=== PATIENT | male | born 1945 | race Caucasian/White ===

== ENCOUNTER 2016-10-19 16:04 | Inpatient (IN) | payer MEDICARE, OTHER ==
[~2016-10-19] VITALS: Ht 165.1 cm; Wt 113.4 kg
[2016-10-19] VITALS (8 sets, daily range): BP systolic 78–195; BP diastolic 55–104; PULSE 65–74; RESP 18–20; TEMP 96.9–97.9; O2SAT 100
[~2016-10-19 16:04] MED LIST: ETOMIDATE 20 MG/10 ML VIAL IV PUSH ONE; LIDOCAINE HCL 2% 100 MG/5 ML SYRINGE IV PUSH ONE; SUCCINYLCHOLINE CHLORIDE 200 MG/10 ML VIAL IVP ONE
[2016-10-19] MEDS ORDERED: PROPOFOL 1000 MG/100 ML INJ 100 ML ONE (16:07)
[2016-10-19] MEDS ORDERED: ceFAZolin 2 GM PREMIX 50 ML ONE (16:08)
[2016-10-19] MEDS ORDERED: DIPHTH/TETANUS/ACEL PERTUSSIS (BOOSTER) 0.5 ML VIAL/PFS IM ONE (16:08)
[2016-10-19 16:35] LABS: AUTOMATED NEUTROPHIL # 10.4 TH/MM3 (1.8-7.7); BASOPHIL # 0.1 TH/MM3 (0-0.2); BASOPHIL % 0.8 % (0.0-2.0); EOSINOPHIL # 0.4 TH/MM3 (0-0.4); EOSINOPHIL % 2.3 % (0.0-4.0); HEMATOCRIT 44.2 % (39.0-51.0); HEMO FLAGS DIFF FINAL; I-STAT POTASSIUM 5.7 MMOL/L (3.5-4.9); I-STAT SODIUM 139 MMOL/L (138-146); LYMPH % 27.2 % (9.0-44.0); LYMPHOCYTE # 4.5 TH/MM3 (1.0-4.8); MEAN CELL VOLUME 90.1 FL (80.0-100.0); MEAN CORPUSCULAR HEMOGLOBIN 30.9 PG (27.0-34.0); MEAN CORPUSCULAR HGB CONC 34.3 % (32.0-36.0); MONO % 6.8 % (0.0-8.0); NEUT % 62.9 % (16.0-70.0); PLATELET COUNT 215 TH/MM3 (150-450); RED CELL DISTRIBUTION WIDTH 14.2 % (11.6-17.2); WHITE BLOOD COUNT 16.5 TH/MM3 (4.0-11.0)
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
[2016-10-19 16:51] LABS: INTERNATIONAL NORMALIZED RATIO 0.9 RATIO; PROTHROMBIN TIME - PATIENT 10.4 SEC (9.8-11.6)
[2016-10-19] MEDS ORDERED: IOHEXOL 350 MG/ML 10 ML VIAL (for RAD DIAG) IV ONE (16:51)
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
[2016-10-19 17:00] LABS: APTT (PATIENT) 20.4 SEC (24.3-30.1)
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
[2016-10-19] MEDS ORDERED: NALOXONE HCL 0.4 MG/ML AMP IV PRN (18:00)
[2016-10-19] MEDS ORDERED: ONDANSETRON HCL 4 MG/2 ML VIAL IV PRN (18:00)
[2016-10-19] MEDS ORDERED: PANTOPRAZOLE SODIUM 40 MG VIAL IV SCH (18:00)
[2016-10-19] MEDS ORDERED: SODIUM CHLORIDE 0.9% FLUSH 5 ML FLUSH IVF PRN ×2 (18:00→18:15)
[2016-10-19] MEDS ORDERED: Post-op Orders (for Pharmacy) MISC XX ONE (18:00)
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
[2016-10-19] MEDS ORDERED: SODIUM PHOSPHATE INJ 30 MMOL in SODIUM CHLOR 0.9% 250 ML INJ 240 ML IV PRN (18:15)
[2016-10-19] MEDS ORDERED: MAGNESIUM SULFATE INJ 4 GM in SODIUM CHLORIDE 0.9% INJ 92 ML IV PRN (18:15)
[2016-10-19] MEDS ORDERED: 3% SALINE INJ 500 ML IV SCH (18:15)
[2016-10-19] MEDS ORDERED: MAGNESIUM OXIDE 400 MG TAB PO PRN (18:15)
[2016-10-19] MEDS ORDERED: POTASSIUM PHOSPHATE MONOBASIC 500 MG TAB PO/TUBE PRN (18:15)
[2016-10-19] MEDS ORDERED: POTASSIUM PHOSPHATE MONOBASIC 500 MG TAB PO PRN (18:15)
[2016-10-19] MEDS ORDERED: POTASSIUM CHLOR 40 MEQ PREMIX 100 ML IV PRN (18:15)
[2016-10-19] MEDS ORDERED: GLUCAGON 1 MG/ML VIAL OTHER PRN ×2 (18:15→22:15)
[2016-10-19] MEDS: SODIUM CHLOR 0.9% 1000 ML INJ 1,000 ML IV SCH (18:15)
[2016-10-19] MEDS ORDERED: PROPOFOL 1000 MG/100 ML IV SCH (18:15)
[2016-10-19] MEDS ORDERED: DEXTROSE 50% IN WATER 50 ML VIAL(D50) IV PUSH PRN ×2 (18:15→22:15)
[2016-10-19] MEDS ORDERED: POTASSIUM CHLOR 20 MEQ PREMIX 100 ML IV PRN ×2 (18:15)
[2016-10-19] MEDS ORDERED: MAGNESIUM SULFATE INJ 2 GM in SODIUM CHLORIDE 0.9% INJ 96 ML IV PRN (18:15)
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
[2016-10-19] MEDS: 3% SALINE INJ 500 ML IV SCH (18:24)
[2016-10-19] MEDS: fentaNYL 2,500 MCG/NS 250 ML IV SCH (18:24)
[2016-10-19] MEDS: PROPOFOL 1000 MG/100 ML INJ 100 ML IV SCH ×2 (18:24→21:18)
[2016-10-19 18:36] LABS: BLOOD GAS CARBOXYHEMOGLOBIN 1.1 % (0-4); BLOOD GAS HCO3 21 mmol/L (22-26); BLOOD GAS METHEMOGLOBIN 0.9 % (0-2); BLOOD GAS O2 HGB SATURATION 98 % (90-100); BLOOD GAS OXYGEN CONTENT 20.5 Vol % (12.0-20.0); BLOOD GAS PCO2 37 mmHg (38-42); BLOOD GAS PO2 260 mmHg (61-120); BLOOD GAS TOTAL HGB 14.5 G/DL (12.0-16.0); CRITICAL VALUE NO; OXYGEN DEVICE VENTILATOR; TEMP CORR TO 98.6
[2016-10-19 18:37] LABS: DRAW SITE RT RADIAL; FIO2 70 %; NUMBER OF ARTERIAL PUNCTURES 2; STAT YES; ULNAR PULSE PRESENT; VENT SETTINGS AC/18/550/PEEP5
[2016-10-19] MEDS ORDERED: NOREPINEPHRINE-DEXTROSE DRIP 250 ML IV SCH ×2 (18:45→19:00)
[2016-10-19] MEDS ORDERED: SODIUM CHLORIDE 23.4% INJ 240 MEQ in SYRINGE/BAG 1 EA IV ONE (18:45)
[2016-10-19] MEDS ORDERED: TERBUTALINE INJ 1 MG/ML AMP SQ PRN ×2 (18:45→19:00)
[2016-10-19] MEDS ORDERED: levETIRAcetam 1000 MG INJ 100 ML IV ONE (18:45)
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
[2016-10-19] MEDS ORDERED: NOREPINEPHRINE 4 MG/4 ML AMP ONE (18:57)
[2016-10-19] MEDS ORDERED: MANNITOL 12.5 GM/50 ML VIAL IV ONE (19:00)
--- NOTE | 2016-10-19 19:00 | RADRPT ---
EXAM DATE/TIME: 10/19/2016 18:21 [facility] COMPARISON: CHEST SINGLE AP, October 19, 2016, 15:58. INDICATIONS : Central line placement. MEDICAL HISTORY : None. SURGICAL HISTORY : None. ENCOUNTER: Initial ACUITY: 1 day PAIN SCORE: Non-responsive. LOCATION: Bilateral chest FINDINGS: A single view of the chest demonstrates left-sided chest tube placement. Multiple left-sided rib frac tures. No pneumothorax. Endotracheal tube with tip 5-1/2 cm above the ugo. Left subclavian central line with tip in the SVC. The cardiomediastinal contours are unremarkable. CONCLUSION: 1. Left-sided rib fractures. 2. No pneumothorax. Waqas Lee MD on October 19, 2016 at 18:55 Board Certified Radiologist. This report was verified electronically.
[2016-10-19 19:34] LABS: ALKALINE PHOSPHATASE 91 U/L (45-117); ALT (GPT) 28 U/L (12-78); ANION GAP 11 MEQ/L (5-15); AST (GOT) 33 U/L (15-37); BICARBONATE 25.3 MEQ/L (21.0-32.0); BLOOD UREA NITROGEN 23 MG/DL (7-18); CHLORIDE 102 MEQ/L (98-107); CREATINE KINASE 438 U/L (39-308); GLOMERULAR FILTRATION RATE 56 ML/MIN (>89); POTASSIUM 4.2 MEQ/L (3.5-5.1); SODIUM (NA) 138 MEQ/L (136-145); TOTAL BILIRUBIN ADULT 0.7 MG/DL (0.2-1.0)
[2016-10-19 19:49] LABS: CKMB 4.4 NG/ML (0.5-3.6)
[2016-10-19] MEDS: INSULIN NovoLIN REGULAR SUPPLEMENTAL SCALE SQ SCH (21:00)
[2016-10-19] MEDS: CHLORHEXIDINE 0.12% (ORAL KIT) 15 ML CUP MT SCH (21:17)
[2016-10-19] MEDS: levETIRAcetam INJ 500 MG in SODIUM CHLORIDE 0.9% INJ 100 ML IV SCH (21:18)
[2016-10-19] MEDS: SODIUM CHLORIDE 0.9% FLUSH 5 ML FLUSH IVF SCH (21:18)
[2016-10-20] VITALS (21 sets, daily range): BP systolic 120–135; BP diastolic 60–70; PULSE 50–74; RESP 12; TEMP 97.5–98.1; O2SAT 97–100
[2016-10-20 00:11] LABS: BLOOD GAS BASE EXCESS -7.4 mmol/L (-2-2); BLOOD GAS CARBOXYHEMOGLOBIN 1.4 % (0-4); BLOOD GAS HCO3 15 mmol/L (22-26); BLOOD GAS O2 HGB SATURATION 98 % (90-100); BLOOD GAS OXYGEN CONTENT 16.3 Vol % (12.0-20.0); BLOOD GAS PO2 196 mmHg (61-120); BLOOD GAS TOTAL HGB 11.6 G/DL (12.0-16.0); CRITICAL VALUE YES; OXYGEN DEVICE VENTILATOR; TEMP CORR TO 98.6
[2016-10-20 00:12] LABS: BLOOD GAS PCO2 18 mmHg (38-42); DRAW SITE ART LINE; FIO2 50 %; STAT NO; VENT SETTINGS PRVC/AC
[2016-10-20] MEDS ORDERED: NOREPINEPHRINE 4 MG/4 ML AMP ONE (02:43)
[2016-10-20] MEDS: PROPOFOL 1000 MG/100 ML INJ 100 ML IV SCH ×5 (03:18→23:17)
[2016-10-20] MEDS: fentaNYL 2,500 MCG/NS 250 ML IV SCH ×4 (03:18→23:16)
[2016-10-20] MEDS: MIDAZOLAM 100 MG/ML INJ 100 ML IV SCH ×3 (03:19→23:15)
[2016-10-20] MEDS: CLINDAMYCIN INJ 600 MG in SODIUM CHLORIDE 0.9% INJ 50 ML IV SCH ×2 (04:00→13:13)
[2016-10-20 04:27] LABS: AUTOMATED NEUTROPHIL # 20.7 TH/MM3 (1.8-7.7); BASOPHIL # 0.1 TH/MM3 (0-0.2); BASOPHIL % 0.3 % (0.0-2.0); EOSINOPHIL # 0.2 TH/MM3 (0-0.4); EOSINOPHIL % 0.6 % (0.0-4.0); HEMATOCRIT 34.7 % (39.0-51.0); HEMO FLAGS DIFF FINAL; LYMPH % 6.8 % (9.0-44.0); LYMPHOCYTE # 1.7 TH/MM3 (1.0-4.8); MEAN CELL VOLUME 89.3 FL (80.0-100.0); MEAN CORPUSCULAR HEMOGLOBIN 31.2 PG (27.0-34.0); MONO % 6.7 % (0.0-8.0); NEUT % 85.6 % (16.0-70.0); PLATELET COUNT 197 TH/MM3 (150-450); RED BLOOD COUNT 3.88 MIL/MM3 (4.50-5.90); RED CELL DISTRIBUTION WIDTH 13.9 % (11.6-17.2); WHITE BLOOD COUNT 24.2 TH/MM3 (4.0-11.0)
[2016-10-20] MEDS ORDERED: EPINEPHrine HCL (1:10,000) 1 MG/10 ML SYRINGE ONE (04:57)
[2016-10-20] MEDS ORDERED: LIDOCAINE HCL 2% 100 MG/5 ML SYRINGE ONE (04:57)
[2016-10-20] MEDS ORDERED: ATROPINE SULFATE 1 MG/10 ML SYRINGE ONE (04:58)
[2016-10-20 05:20] LABS: BICARBONATE 19.5 MEQ/L (21.0-32.0); POTASSIUM 4.4 MEQ/L (3.5-5.1)
--- NOTE | 2016-10-20 05:46 | RADRPT ---
EXAM DATE/TIME: 10/20/2016 05:08 [facility] COMPARISON: CT BRAIN W/O CONTRAST, October 19, 2016, 16:27. INDICATIONS : Follow up bleed. RADIATION DOSE: 69.17 CTDIvol (mGy) MEDICAL HISTORY : Non-responsive. SURGICAL HISTORY : Non-responsive. ENCOUNTER: Subsequent ACUITY: 1 day PAIN SCALE: Non-responsive LOCATION: cranial TECHNIQUE: Multiple contiguous axial images were obtained of the head. Using automated exposure control and adj ustment of the mA and/or kV according to patient size, radiation dose was kept as low as reasonably a chievable to obtain optimal diagnostic quality images. FINDINGS: Compare October 19. Trace left subdural hematoma the previous exam has increased in size to a thickness of about 12 mm in the left temporal region on the current exam with some localized mass effect. No m idline shift at the level of the septum pellucidum. Hemorrhagic contusion right frontal lobe has increased in size to about 2.4 x 1.6 cm compared with pr evious measurement of about 2.2 x 1.5 cm. Evolving right subdural hematoma stable. Scattered subarach noid hemorrhage is relatively stable. Right frontal pressure monitor present. CONCLUSION: 1. Compared with October 19 there is interval development of a left-sided subdural hematoma measuring a bout 12 mm in thickness with localized mass effect. 2. Slight increase in size of hemorrhagic contusion in right frontal lobe. 3. Evolving right subdural hemorrhage. Scattered subarachnoid hemorrhage. Jf Sun MD on October 20, 2016 at 5:40 Board Certified Radiologist. This report was verified electronically.
[2016-10-20] MEDS: SODIUM CHLOR 0.9% 1000 ML INJ 1,000 ML IV SCH ×2 (06:20→18:00)
[2016-10-20] MEDS: INSULIN NovoLIN REGULAR SUPPLEMENTAL SCALE SQ SCH ×5 (06:21→22:37)
[2016-10-20] MEDS: NOREPINEPHRINE INJ 4 MG in SODIUM CHLOR 0.9% 250 ML INJ 246 ML IV SCH ×3 (07:18→23:15)
[2016-10-20] MEDS: levETIRAcetam INJ 500 MG in SODIUM CHLORIDE 0.9% INJ 100 ML IV SCH ×2 (08:44→21:42)
[2016-10-20] MEDS: SODIUM CHLORIDE 0.9% FLUSH 5 ML FLUSH IVF SCH ×3 (08:44→21:20)
[2016-10-20] MEDS: CHLORHEXIDINE 0.12% (ORAL KIT) 15 ML CUP MT SCH ×2 (08:45→21:21)
[2016-10-20] MEDS ORDERED: GENTAMICIN SULFATE 80 MG/2 ML VIAL ONE (09:19)
[2016-10-20] MEDS ORDERED: SODIUM CHLOR 0.9% 250 ML INJ 250 ML ONE (09:19)
[2016-10-20] MEDS ORDERED: GELFOAM SIZE 100 ONE (09:19)
[2016-10-20] MEDS ORDERED: THROMBIN (TOPICAL) 5,000 UNIT VIAL ONE (09:19)
[2016-10-20] MEDS ORDERED: VANCOMYCIN HCL 1000 MG VIAL ONE (09:19)
[2016-10-20] MEDS ORDERED: LIDOCAINE 1%/EPINEPHrine 1:100,000 SOLN 30 ML VIAL ONE (09:19)
[2016-10-20] MEDS ORDERED: ceFAZolin 2 GM PREMIX 50 ML ONE (09:19)
[2016-10-20] MEDS ORDERED: BACITRACIN TOP OINT 15 GM TUBE ONE (09:19)
[2016-10-20 10:00] LABS: BLOOD GAS BASE EXCESS -6.9 mmol/L (-2-2); BLOOD GAS CARBOXYHEMOGLOBIN 1.4 % (0-4); BLOOD GAS HCO3 18 mmol/L (22-26); BLOOD GAS METHEMOGLOBIN 1.3 % (0-2); BLOOD GAS O2 HGB SATURATION 96 % (90-100); BLOOD GAS OXYGEN CONTENT 17.1 Vol % (12.0-20.0); BLOOD GAS PCO2 40 mmHg (38-42); BLOOD GAS PO2 141 mmHg (61-120); BLOOD GAS TOTAL HGB 12.5 G/DL (12.0-16.0); TEMP CORR TO 98.6
[2016-10-20 10:01] LABS: CRITICAL VALUE YES; DRAW SITE ART LINE; OXYGEN DEVICE VENTILATOR; STAT YES
[2016-10-20] MEDS ORDERED: NS + KCL 20 MEQ INJ 1,000 ML IV SCH (10:06)
[2016-10-20] MEDS ORDERED: ACETAMINOPHEN/HYDROcodone 325 MG/10 MG TAB PO PRN ×2 (10:15)
[2016-10-20] MEDS ORDERED: MAGNESIUM SULFATE INJ 4 GM in SODIUM CHLORIDE 0.9% INJ 100 ML IV PRN (10:15)
[2016-10-20] MEDS ORDERED: MORPHINE SULFATE 4 MG/ML INJ IV PUSH PRN ×2 (10:15)
[2016-10-20] MEDS ORDERED: ONDANSETRON HCL 4 MG/2 ML VIAL IV PRN (10:15)
[2016-10-20] MEDS ORDERED: BISACODYL 10 MG SUPP PR PRN (10:15)
[2016-10-20] MEDS ORDERED: SODIUM CHLORIDE 0.9% FLUSH 5 ML FLUSH IVF PRN (10:15)
[2016-10-20] MEDS ORDERED: ACETAMINOPHEN 325 MG TAB PO PRN (10:15)
[2016-10-20] MEDS ORDERED: CALCIUM GLUCONATE 10% 1 GM/10 ML VIAL IV PRN (10:15)
[2016-10-20] MEDS ORDERED: POTASSIUM CHLOR 20 MEQ PREMIX 100 ML IV PRN (10:15)
[2016-10-20] MEDS ORDERED: levETIRAcetam INJ 500 MG in SODIUM CHLORIDE 0.9% INJ 100 ML IV SCH (11:00)
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
[2016-10-20] MEDS ORDERED: PHENYLEPH/NS 1000 MCG/10 ML SYR IV ONE (12:00)
[2016-10-20] MEDS ORDERED: fentaNYL CITRATE 250 MCG/5 ML AMP ONE (12:24)
--- NOTE | 2016-10-20 12:27 | EKG ---
Date Performed: 10/20/2016 Time Performed: 08:10:16 PTAGE: 71 years EKG: Sinus bradycardia. Septal T wave changes are nonspecific Borderline ECG NO PREVIOUS TRACING DOCTOR: Jatin Martinez Interpretating Date/Time 10/20/2016 12:26:34
[2016-10-20] MEDS ORDERED: TERBUTALINE INJ 1 MG/ML AMP SQ PRN (12:45)
[2016-10-20 12:55] LABS: BLOOD GAS CARBOXYHEMOGLOBIN 1.4 % (0-4); BLOOD GAS HCO3 18 mmol/L (22-26); BLOOD GAS METHEMOGLOBIN 1.1 % (0-2); BLOOD GAS O2 HGB SATURATION 95 % (90-100); BLOOD GAS PCO2 33 mmHg (38-42); BLOOD GAS PO2 89 mmHg (61-120); BLOOD GAS TOTAL HGB 11.2 G/DL (12.0-16.0); CRITICAL VALUE NO; OXYGEN DEVICE VENTILATOR; TEMP CORR TO 98.6
[2016-10-20 12:56] LABS: DRAW SITE ART LINE; FIO2 40 %; STAT NO
[2016-10-20] MEDS: 3% SALINE INJ 500 ML IV SCH (13:14)
[2016-10-20] MEDS: ceFAZolin 2 GM PREMIX 50 ML IV SCH ×2 (13:55→21:18)
[2016-10-20] MEDS ORDERED: EPINEPHrine (1:1000) INJ 2 MG in SODIUM CHLOR 0.9% 250 ML INJ 250 ML IV SCH (15:00)
[2016-10-20] MEDS ORDERED: PHENYLEPHRINE INJ 160 MG in DEXTROSE 5% IN WATE 500 ML INJ 484 ML IV SCH ×2 (15:00)
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
[2016-10-20] MEDS: DOCUSATE SODIUM 100 MG CAP PO SCH (21:19)
[2016-10-20] MEDS: ARTIFICIAL TEARS OPTH SOLN 15 ML BTL EACH EYE SCH (21:21)
[2016-10-20] MEDS: BACITRACIN TOP OINT 15 GM TUBE TOP SCH (22:37)
[2016-10-20 22:42] LABS: BLOOD GAS BASE EXCESS -7.5 mmol/L (-2-2); BLOOD GAS CARBOXYHEMOGLOBIN 1.3 % (0-4); BLOOD GAS HCO3 17 mmol/L (22-26); BLOOD GAS METHEMOGLOBIN 0.9 % (0-2); BLOOD GAS O2 HGB SATURATION 97 % (90-100); BLOOD GAS OXYGEN CONTENT 14.4 Vol % (12.0-20.0); BLOOD GAS PCO2 30 mmHg (38-42); BLOOD GAS PO2 122 mmHg (61-120); BLOOD GAS TOTAL HGB 10.4 G/DL (12.0-16.0); CRITICAL VALUE NO; OXYGEN DEVICE VENTILATOR; TEMP CORR TO 98.6
[2016-10-20 22:43] LABS: DRAW SITE ART LINE; FIO2 40 %; STAT NO
[2016-10-20] MEDS ORDERED: GLUCAGON 1 MG/ML VIAL OTHER PRN (23:15)
[2016-10-20] MEDS ORDERED: DEXTROSE 50% IN WATER 50 ML VIAL(D50) IV PUSH PRN (23:15)
[2016-10-21] VITALS (15 sets, daily range): BP systolic 125–163; BP diastolic 54–71; PULSE 53–78; RESP 12–22; TEMP 93.4–100; O2SAT 97–100
[2016-10-21] MEDS: SODIUM CHLOR 0.9% 1000 ML INJ 1,000 ML IV SCH ×2 (02:40→12:22)
[2016-10-21] MEDS: NOREPINEPHRINE INJ 4 MG in SODIUM CHLOR 0.9% 250 ML INJ 246 ML IV SCH ×5 (02:40→22:57)
[2016-10-21] MEDS: ARTIFICIAL TEARS OPTH SOLN 15 ML BTL EACH EYE SCH ×4 (03:19→17:32)
[2016-10-21] MEDS ORDERED: EPINEPHrine HCL (1:10,000) 1 MG/10 ML SYRINGE ONE (04:41)
[2016-10-21] MEDS ORDERED: ATROPINE SULFATE 1 MG/10 ML SYRINGE ONE (04:41)
[2016-10-21] MEDS ORDERED: LIDOCAINE HCL 2% 100 MG/5 ML SYRINGE ONE (04:41)
--- NOTE | 2016-10-21 05:11 | RADRPT ---
EXAM DATE/TIME: 10/21/2016 03:51 [facility] COMPARISON: CHEST SINGLE AP, October 19, 2016, 18:21. INDICATIONS : Shortness of breath. MEDICAL HISTORY : None. SURGICAL HISTORY : None. ENCOUNTER: Subsequent ACUITY: 3 days PAIN SCORE: Non-responsive. LOCATION: Bilateral chest FINDINGS: A single view of the chest demonstrates the lungs to be symmetrically aerated without evidence of mas s, infiltrate or effusion. The cardiomediastinal contours are unremarkable. Osseous structures are intact. CONCLUSION: 1. No significant change has occurred. Sterling Gordon MD on October 21, 2016 at 5:09 Board Certified Radiologist. This report was verified electronically.
--- NOTE | 2016-10-21 05:26 | RADRPT ---
EXAM DATE/TIME: 10/21/2016 05:08 [facility] COMPARISON: CT BRAIN W/O CONTRAST, October 20, 2016, 5:08. INDICATIONS : Follow up bleed. RADIATION DOSE: 69.15 CTDIvol (mGy) MEDICAL HISTORY : Non-responsive. SURGICAL HISTORY : Non-responsive. ENCOUNTER: Subsequent ACUITY: 2 days PAIN SCALE: Non-responsive LOCATION: cranial TECHNIQUE: Multiple contiguous axial images were obtained of the head. Using automated exposure control and adj ustment of the mA and/or kV according to patient size, radiation dose was kept as low as reasonably a chievable to obtain optimal diagnostic quality images. FINDINGS: There are bilateral hemorrhagic contusions seen in the temporal regions right greater than left with a mild amount of surrounding edema. There is scattered subarachnoid hemorrhage seen which is stable. Right frontal hematoma is stable on axial image 24. There are skin david and the patient is status post left frontal craniotomy with subdural drain placement and evacuation of left temporal subdural h emorrhage which is significantly smaller on the current study with a maximal transverse width of 7 mm . There is a hypodense right subdural collection with mass effect on the right frontal lobe measuring 8 mm in transverse dimension as before. Small retinal hemorrhages are seen in the inferior frontal r egion at the midline as before. Bilateral periorbital soft tissue swelling is seen. A small amount of intraventricular hemorrhage and hemorrhage in the interpeduncular cistern again seen as well as laye ring along the tentorium. 1.9 mm of right to left shift. CONCLUSION: 1. Postsurgical changes with decrease in size of left subdural hematoma with drain placement. 2. Scattered areas of intraparenchymal and extra-axial hemorrhage. Sterling Gordon MD on October 21, 2016 at 5:21 Board Certified Radiologist. This report was verified electronically.
[2016-10-21 06:21] LABS: BLOOD GAS BASE EXCESS -7.4 mmol/L (-2-2); BLOOD GAS CARBOXYHEMOGLOBIN 1.3 % (0-4); BLOOD GAS HCO3 17 mmol/L (22-26); BLOOD GAS METHEMOGLOBIN 0.8 % (0-2); BLOOD GAS O2 HGB SATURATION 96 % (90-100); BLOOD GAS OXYGEN CONTENT 13.6 Vol % (12.0-20.0); BLOOD GAS PCO2 33 mmHg (38-42); BLOOD GAS PO2 104 mmHg (61-120); CRITICAL VALUE NO; OXYGEN DEVICE VENTILATOR; TEMP CORR TO 98.6
[2016-10-21 06:22] LABS: DRAW SITE ART LINE; FIO2 40 %; STAT NO; VENT SETTINGS SEE COMMENTS
[2016-10-21] MEDS: PROPOFOL 1000 MG/100 ML INJ 100 ML IV SCH ×5 (06:31→17:30)
[2016-10-21] MEDS: ceFAZolin 2 GM PREMIX 50 ML IV SCH (06:31)
[2016-10-21 07:00] LABS: AUTOMATED NEUTROPHIL # 19.5 TH/MM3 (1.8-7.7); BASOPHIL % 0.2 % (0.0-2.0); EOSINOPHIL # 0.2 TH/MM3 (0-0.4); EOSINOPHIL % 0.8 % (0.0-4.0); HEMATOCRIT 28.2 % (39.0-51.0); HEMO FLAGS DIFF FINAL; LYMPH % 4.9 % (9.0-44.0); LYMPHOCYTE # 1.1 TH/MM3 (1.0-4.8); MEAN CELL VOLUME 89.7 FL (80.0-100.0); MEAN CORPUSCULAR HEMOGLOBIN 31.3 PG (27.0-34.0); MEAN CORPUSCULAR HGB CONC 34.9 % (32.0-36.0); MONO % 3.7 % (0.0-8.0); NEUT % 90.4 % (16.0-70.0); PLATELET COUNT 140 TH/MM3 (150-450); RED BLOOD COUNT 3.14 MIL/MM3 (4.50-5.90); RED CELL DISTRIBUTION WIDTH 14.7 % (11.6-17.2); WHITE BLOOD COUNT 21.5 TH/MM3 (4.0-11.0)
[2016-10-21 07:22] LABS: ANION GAP 10 MEQ/L (5-15); BICARBONATE 19.4 MEQ/L (21.0-32.0); BLOOD UREA NITROGEN 11 MG/DL (7-18); CHLORIDE 125 MEQ/L (98-107); GLOMERULAR FILTRATION RATE 101 ML/MIN (>89); POTASSIUM 3.7 MEQ/L (3.5-5.1); SODIUM (NA) 154 MEQ/L (136-145)
[2016-10-21 07:30] LABS: ALKALINE PHOSPHATASE 57 U/L (45-117); ALT (GPT) 23 U/L (12-78); AST (GOT) 24 U/L (15-37); TOTAL BILIRUBIN ADULT 0.5 MG/DL (0.2-1.0)
[2016-10-21] MEDS: PANTOPRAZOLE SOD 40 MG DELAYED RELEASE TAB PO SCH (08:27)
[2016-10-21] MEDS: SODIUM CHLORIDE 0.9% FLUSH 5 ML FLUSH IVF SCH ×3 (08:27→19:56)
[2016-10-21] MEDS: LACTULOSE SYRUP 20 GM/30 ML CUP PO SCH (08:42)
[2016-10-21] MEDS: DOCUSATE SODIUM 100 MG CAP PO SCH ×2 (08:42→19:56)
[2016-10-21] MEDS: PANTOPRAZOLE SODIUM 40 MG VIAL IVP SCH (08:42)
[2016-10-21] MEDS: levETIRAcetam INJ 500 MG in SODIUM CHLORIDE 0.9% INJ 100 ML IV SCH ×2 (08:43→19:55)
[2016-10-21] MEDS: CHLORHEXIDINE 0.12% (ORAL KIT) 15 ML CUP MT SCH ×2 (08:43→21:04)
[2016-10-21] MEDS: BACITRACIN TOP OINT 15 GM TUBE TOP SCH ×2 (08:44→19:56)
[2016-10-21] MEDS: INSULIN ASPART SUPPLEMENTAL SCALE SQ SCH ×3 (08:44→12:20)
[2016-10-21] MEDS: MIDAZOLAM 100 MG/ML INJ 100 ML IV SCH ×2 (08:46→17:30)
[2016-10-21] MEDS: fentaNYL 2,500 MCG/NS 250 ML IV SCH ×2 (08:46→17:30)
[2016-10-21] MEDS ORDERED: SODIUM CHLORID 0.9% 500 ML INJ 500 ML IV ONE ×3 (10:15→12:00)
[2016-10-21] MEDS ORDERED: DEXTROSE 50% IN WATER 50 ML VIAL(D50) IV PUSH PRN (10:15)
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
[2016-10-21] MEDS ORDERED: INSULIN NovoLIN REGULAR SUPPLEMENTAL SCALE SQ SCH (12:00)
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
[2016-10-21] MEDS: 3% SALINE INJ 500 ML IV SCH (17:31)
[2016-10-21] MEDS: INSULIN NovoLIN REGULAR SUPPLEMENTAL SCALE SQ SCH (17:32)
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
--- NOTE | 2016-10-21 23:03 | PD.CONS ---
History of Present Illness Service Ophthalmology Consult Requested By Reason for Consult left orbital fracture Primary Care Physician Unknown Diagnoses: History of Present Illness 71 [place] [facility] [place]. Found to have SAH, SDH with 4cm right to left shift, multiple facial fractures including left orbital fracture. Pt currently intubated and sedated. Past Family Social History Allergies: Coded Allergies: No Known Allergies (Unverified , 10/20/16) Physical Exam Vital Signs Vital Signs Date Time Temp Pulse Resp B/P Pulse Ox O2 Delivery O2 Flow Rate FiO2 10/21/16 20:23 100 40 10/21/16 20:23 100 40 10/21/16 17:00 40 10/21/16 16:00 98.6 67 14 163/60 98 10/21/16 16:00 40 10/21/16 15:46 99 40 10/21/16 12:00 40 10/21/16 12:00 99.0 70 14 136/54 98 10/21/16 11:17 98 40 10/21/16 08:00 40 10/21/16 08:00 95.3 78 12 140/68 98 10/21/16 08:00 98 40 10/21/16 08:00 98 40 10/21/16 06:00 70 10/21/16 05:32 100 100 10/21/16 04:34 99 40 10/21/16 04:00 54 10/21/16 04:00 40 10/21/16 04:00 93.4 54 12 125/66 99 10/21/16 02:00 53 10/21/16 01:33 100 40 10/21/16 00:00 93.4 54 12 131/59 100 10/21/16 00:00 54 10/21/16 00:00 40 10/20/16 23:34 100 40 Physical Exam Va unable EOM unable CVF unable Pupils 1mm OU, no APD IOP 20, 20 Anterior exam OD - eyelid ecchymoses, chemosis, K clear, AC deep, pupil round, lens clear OS - eyelid ecchymoses, chemosis/MAGALYS, K clear, AC deep, pupil round, lens clear Laboratory Laboratory Tests Test 10/21/16 10/21/16 10/21/16 10/21/16 02:43 06:08 06:16 09:00 Sodium Level 154 154 153 Serum Osmolality 320 318 Blood Gas Puncture Site ART LINE Blood Gas Patient Temperature 98.6 Blood Gas HCO3 17 Blood Gas Base Excess -7.4 Blood Gas Oxygen Saturation 96 Arterial Blood pH 7.34 Arterial Blood Partial 33 Pressure CO2 Arterial Blood Partial 104 Pressure O2 Arterial Blood Oxygen Content 13.6 Arterial Blood 1.3 Carboxyhemoglobin Arterial Blood Methemoglobin 0.8 Blood Gas Hemoglobin 10.0 Oxygen Delivery Device VENTILATOR Blood Gas Ventilator Setting SEE COMMENTS Blood Gas Inspired Oxygen 40 White Blood Count 21.5 Red Blood Count 3.14 Hemoglobin 9.8 Hematocrit 28.2 Mean Corpuscular Volume 89.7 Mean Corpuscular Hemoglobin 31.3 Mean Corpuscular Hemoglobin 34.9 Concent Red Cell Distribution Width 14.7 Platelet Count 140 Mean Platelet Volume 7.5 Neutrophils (%) (Auto) 90.4 Lymphocytes (%) (Auto) 4.9 Monocytes (%) (Auto) 3.7 Eosinophils (%) (Auto) 0.8 Basophils (%) (Auto) 0.2 Neutrophils # (Auto) 19.5 Lymphocytes # (Auto) 1.1 Monocytes # (Auto) 0.8 Eosinophils # (Auto) 0.2 Basophils # (Auto) 0.0 CBC Comment DIFF FINAL Differential Comment Potassium Level 3.7 Chloride Level 125 Carbon Dioxide Level 19.4 Anion Gap 10 Blood Urea Nitrogen 11 Creatinine 0.76 Estimat Glomerular Filtration 101 Rate Random Glucose 225 Calcium Level 7.6 Phosphorus Level 1.6 Magnesium Level 2.0 Total Bilirubin 0.5 Aspartate Amino Transf 24 (AST/SGOT) Alanine Aminotransferase 23 (ALT/SGPT) Alkaline Phosphatase 57 Total Protein 5.2 Albumin 2.3 Test 10/21/16 10/21/16 10/21/16 11:45 15:10 20:00 Lactic Acid Level 1.3 Sodium Level 157 155 Serum Osmolality 322 322 Result Diagram: 10/21/16 0616 10/21/161999 Assessment and Plan Problem List: (1) Fracture of left orbit Status: Acute Plan: No ruptured globe on exam. Comprehensive dilated exam will need to be done when pt is awake and following commands. Tanvi Green MD Oct 21, 2016 23:03
[2016-10-22] VITALS (19 sets, daily range): BP systolic 152–166; BP diastolic 60–85; PULSE 54–61; RESP 14; TEMP 97.5–97.9; O2SAT 100
[2016-10-22] MEDS: MIDAZOLAM 100 MG/ML INJ 100 ML IV SCH ×3 (02:41→21:38)
[2016-10-22] MEDS: PROPOFOL 1000 MG/100 ML INJ 100 ML IV SCH ×6 (02:41→21:38)
[2016-10-22] MEDS: fentaNYL 2,500 MCG/NS 250 ML IV SCH ×3 (02:42→14:29)
[2016-10-22] MEDS: NOREPINEPHRINE INJ 4 MG in SODIUM CHLOR 0.9% 250 ML INJ 246 ML IV SCH ×3 (02:56→22:57)
[2016-10-22 05:09] LABS: AUTOMATED NEUTROPHIL # 12.8 TH/MM3 (1.8-7.7); BASOPHIL # 0.1 TH/MM3 (0-0.2); BASOPHIL % 0.5 % (0.0-2.0); EOSINOPHIL # 0.4 TH/MM3 (0-0.4); HEMATOCRIT 24.4 % (39.0-51.0); HEMO FLAGS DIFF FINAL; MEAN CELL VOLUME 89.5 FL (80.0-100.0); MEAN CORPUSCULAR HEMOGLOBIN 31.1 PG (27.0-34.0); MEAN CORPUSCULAR HGB CONC 34.7 % (32.0-36.0); MONO % 3.8 % (0.0-8.0); NEUT % 85.7 % (16.0-70.0); PLATELET COUNT 137 TH/MM3 (150-450); RED BLOOD COUNT 2.73 MIL/MM3 (4.50-5.90); RED CELL DISTRIBUTION WIDTH 14.7 % (11.6-17.2); WHITE BLOOD COUNT 14.9 TH/MM3 (4.0-11.0)
[2016-10-22 05:33] LABS: BICARBONATE 17.7 MEQ/L (21.0-32.0); CALCIUM-PROTEIN CORRECTED 8.4 MG/DL (8.5-10.1); MAGNESIUM 1.8 MG/DL (1.5-2.5); POTASSIUM 3.5 MEQ/L (3.5-5.1); TOTAL BILIRUBIN ADULT 0.5 MG/DL (0.2-1.0)
[2016-10-22] MEDS: ARTIFICIAL TEARS OPTH SOLN 15 ML BTL EACH EYE SCH ×4 (06:00→18:00)
[2016-10-22] MEDS: INSULIN NovoLIN REGULAR SUPPLEMENTAL SCALE SQ SCH ×4 (06:00→18:00)
--- NOTE | 2016-10-22 06:00 | RADRPT ---
EXAM DATE/TIME: 10/22/2016 03:43 [facility] COMPARISON: CHEST SINGLE AP, October 21, 2016, 3:51. INDICATIONS : Shortness of breath. MEDICAL HISTORY : None. SURGICAL HISTORY : None. ENCOUNTER: Subsequent ACUITY: 4 - 6 days PAIN SCORE: Non-responsive. LOCATION: Bilateral chest FINDINGS: There is mild left lower lobe airspace disease, left sided chest tube, left subclavian line, endotrac heal tube and enteric tube noted. I do not see a pneumothorax. There are degenerative changes of the spine and cardiomegaly. The right lung is clear. CONCLUSION: No significant change has occurred. Sterling Gordon MD on October 22, 2016 at 5:59 Board Certified Radiologist. This report was verified electronically.
[2016-10-22 06:26] LABS: BLOOD GAS BASE EXCESS -8.2 mmol/L (-2-2); BLOOD GAS CARBOXYHEMOGLOBIN 1.4 % (0-4); BLOOD GAS HCO3 16 mmol/L (22-26); BLOOD GAS METHEMOGLOBIN 0.7 % (0-2); BLOOD GAS O2 HGB SATURATION 97 % (90-100); BLOOD GAS OXYGEN CONTENT 12.4 Vol % (12.0-20.0); BLOOD GAS PCO2 29 mmHg (38-42); BLOOD GAS PO2 155 mmHg (61-120); BLOOD GAS TOTAL HGB 8.8 G/DL (12.0-16.0); TEMP CORR TO 98.6
[2016-10-22 06:27] LABS: CRITICAL VALUE YES; OXYGEN DEVICE VENTILATOR
[2016-10-22 06:28] LABS: DRAW SITE ART LINE; FIO2 40 %; STAT NO
[2016-10-22] MEDS: CHLORHEXIDINE 0.12% (ORAL KIT) 15 ML CUP MT SCH ×2 (08:00→20:00)
[2016-10-22] MEDS: PANTOPRAZOLE SODIUM 40 MG VIAL IVP SCH (08:04)
[2016-10-22] MEDS: LACTULOSE SYRUP 20 GM/30 ML CUP PO SCH (08:04)
[2016-10-22] MEDS: levETIRAcetam INJ 500 MG in SODIUM CHLORIDE 0.9% INJ 100 ML IV SCH ×2 (08:05→21:38)
[2016-10-22] MEDS: SODIUM CHLORIDE 0.9% FLUSH 5 ML FLUSH IVF SCH ×3 (08:05→21:00)
[2016-10-22] MEDS: DOCUSATE SODIUM 100 MG CAP PO SCH ×2 (08:05→21:59)
[2016-10-22] MEDS: BACITRACIN TOP OINT 15 GM TUBE TOP SCH ×2 (08:06→21:00)
[2016-10-22] MEDS: PANTOPRAZOLE SOD 40 MG DELAYED RELEASE TAB PO SCH (08:06)
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
[2016-10-22] MEDS: POTASSIUM PHOSPHATE INJ 30 MMOL in SODIUM CHLOR 0.9% 250 ML INJ 250 ML IV PRN ×2 (09:26→22:57)
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
[2016-10-22] MEDS ORDERED: SODIUM BICARBONATE 8.4% INJ 50 MEQ/50 ML SYR IV PUSH ONE (10:00)
[2016-10-22] MEDS: SODIUM CHLOR 0.9% 1000 ML INJ 1,000 ML IV SCH ×3 (10:00→20:00)
[2016-10-22] MEDS ORDERED: PENTOBARBITAL IVS ONE (10:00)
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
[2016-10-22] MEDS: 3% SALINE INJ 500 ML IV SCH (15:25)
[2016-10-22] MEDS ORDERED: PENTOBARBITAL IV PRN (17:00)
[2016-10-22 18:51] LABS: POTASSIUM 3.3 MEQ/L (3.5-5.1)
[2016-10-22 21:03] LABS: MEAN CORPUSCULAR HGB CONC 36.1 % (32.0-36.0)
--- NOTE | 2016-10-22 21:28 | MG ---
cc: MANPREET KEANE MD Lab No: Date: 10/22/2016 Age: Sex: M Race: DATE OF 1945 ELECTROENCEPHALOGRAM RECORD NUMBER [id number] INTERPRETATION A 71-year-old intubated, intraparenchymal hemorrhage. On Diprivan and Versed. DESCRIPTION Flat line suppression appearance with occasional bursts of dysmorphic 3-4 Hz activity, 10-40 microvolts mainly on the left side. Suppression occurred for over 10-20 seconds at times, other times 6-10. No driving with photic stimulation. Single lead EKG showing sinus rhythm. INTERPRETATION Burst suppression pattern with lengthy suppression periods. Indicative of severe encephalopathy. Clinical correlation. Manpreet Keane MD MG/KK /8:38 PM /9:07 PM CHRISTIAN
[2016-10-23] VITALS (20 sets, daily range): BP systolic 143–156; BP diastolic 62–68; PULSE 56–64; RESP 14–16; TEMP 97.6–99; O2SAT 96–100
[2016-10-23] MEDS: PROPOFOL 1000 MG/100 ML INJ 100 ML IV SCH ×6 (02:19→18:10)
[2016-10-23] MEDS: NOREPINEPHRINE INJ 4 MG in SODIUM CHLOR 0.9% 250 ML INJ 246 ML IV SCH ×2 (02:58→15:30)
[2016-10-23] MEDS: fentaNYL 2,500 MCG/NS 250 ML IV SCH ×2 (02:58→09:28)
[2016-10-23] MEDS ORDERED: EPINEPHrine HCL (1:10,000) 1 MG/10 ML SYRINGE ONE (04:26)
[2016-10-23] MEDS ORDERED: LIDOCAINE HCL 2% 100 MG/5 ML SYRINGE ONE (04:26)
[2016-10-23] MEDS ORDERED: ATROPINE SULFATE 1 MG/10 ML SYRINGE ONE (04:26)
--- NOTE | 2016-10-23 04:45 | RADRPT ---
EXAM DATE/TIME: 10/23/2016 03:10 [facility] COMPARISON: CHEST SINGLE AP, October 22, 2016, 3:43. INDICATIONS : Shortness of breath. MEDICAL HISTORY : Non-responsive. SURGICAL HISTORY : Non-responsive. ENCOUNTER: Subsequent ACUITY: 4 - 6 days PAIN SCORE: Non-responsive. LOCATION: Bilateral chest FINDINGS: There is right basilar atelectasis and left lower lobe consolidation and possible small left effusion . Left-sided chest tube and left subclavian line noted. Endotracheal tube and enteric tube present. I do not see a pneumothorax. CONCLUSION: No significant change has occurred. Sterling Gordon MD on October 23, 2016 at 4:43 Board Certified Radiologist. This report was verified electronically.
--- NOTE | 2016-10-23 04:56 | RADRPT ---
EXAM DATE/TIME: 10/23/2016 04:46 [facility] COMPARISON: CT BRAIN W/O CONTRAST, October 21, 2016, 5:08. INDICATIONS : Follow up hemorrhage. RADIATION DOSE: 70.35 CTDIvol (mGy) MEDICAL HISTORY : Non-responsive. SURGICAL HISTORY : Non-responsive. ENCOUNTER: Subsequent ACUITY: 4 - 6 days PAIN SCALE: Non-responsive LOCATION: cranial TECHNIQUE: Multiple contiguous axial images were obtained of the head. Using automated exposure control and adj ustment of the mA and/or kV according to patient size, radiation dose was kept as low as reasonably a chievable to obtain optimal diagnostic quality images. FINDINGS: Bilateral hypodense subdural collections in the frontal regions are again seen, scattered areas of bower barachnoid hemorrhage and parenchymal hematomas again noted and not significantly changed. The left t emporal subdural hemorrhage is slightly less dense but stable in size. Left frontal craniotomy. Left sphenoid, temporal and zygomatic arch fractures. Left mastoid opacification. Left subdural drain in p lace. CONCLUSION: No significant change has occurred. Sterling Gordon MD on October 23, 2016 at 4:53 Board Certified Radiologist. This report was verified electronically.
[2016-10-23] MEDS: INSULIN NovoLIN REGULAR SUPPLEMENTAL SCALE SQ SCH ×4 (06:00→18:00)
[2016-10-23] MEDS: SODIUM CHLOR 0.9% 1000 ML INJ 1,000 ML IV SCH ×2 (06:00→16:00)
[2016-10-23] MEDS: ARTIFICIAL TEARS OPTH SOLN 15 ML BTL EACH EYE SCH ×4 (06:00→18:00)
[2016-10-23 06:05] LABS: BLOOD GAS BASE EXCESS -8.2 mmol/L (-2-2); BLOOD GAS CARBOXYHEMOGLOBIN 1.4 % (0-4); BLOOD GAS HCO3 17 mmol/L (22-26); BLOOD GAS METHEMOGLOBIN 0.8 % (0-2); BLOOD GAS O2 HGB SATURATION 94 % (90-100); BLOOD GAS OXYGEN CONTENT 13.7 Vol % (12.0-20.0); BLOOD GAS PCO2 35 mmHg (38-42); BLOOD GAS PO2 83 mmHg (61-120); BLOOD GAS TOTAL HGB 10.3 G/DL (12.0-16.0); CRITICAL VALUE NO; OXYGEN DEVICE VENTILATOR; TEMP CORR TO 98.6
[2016-10-23 06:06] LABS: DRAW SITE ART LINE; FIO2 40 %; STAT NO; VENT SETTINGS PRVC/AC
[2016-10-23 06:32] LABS: AUTOMATED NEUTROPHIL # 8.2 TH/MM3 (1.8-7.7); BASOPHIL % 0.5 % (0.0-2.0); EOSINOPHIL # 0.4 TH/MM3 (0-0.4); EOSINOPHIL % 4.3 % (0.0-4.0); HEMATOCRIT 23.5 % (39.0-51.0); LYMPH % 9.1 % (9.0-44.0); LYMPHOCYTE # 0.9 TH/MM3 (1.0-4.8); MEAN CELL VOLUME 89.6 FL (80.0-100.0); MEAN CORPUSCULAR HEMOGLOBIN 32.3 PG (27.0-34.0); MONO % 4.3 % (0.0-8.0); NEUT % 81.8 % (16.0-70.0); PLATELET COUNT 141 TH/MM3 (150-450); RED BLOOD COUNT 2.62 MIL/MM3 (4.50-5.90); RED CELL DISTRIBUTION WIDTH 14.6 % (11.6-17.2)
[2016-10-23 06:41] LABS: HEMO FLAGS AUTO DIFF
[2016-10-23 07:23] LABS: CALCIUM-PROTEIN CORRECTED 8.7 MG/DL (8.5-10.1); MAGNESIUM 1.9 MG/DL (1.5-2.5); TOTAL BILIRUBIN ADULT 0.5 MG/DL (0.2-1.0)
[2016-10-23 07:24] LABS: BICARBONATE 18.5 MEQ/L (21.0-32.0); POTASSIUM 3.5 MEQ/L (3.5-5.1)
[2016-10-23] MEDS: CHLORHEXIDINE 0.12% (ORAL KIT) 15 ML CUP MT SCH ×2 (08:00→20:00)
[2016-10-23 08:57] LABS: SCAN/DIFF AUTO DIFF CONFIRMED; SPHEROCYTES 1+ (NORMAL)
[2016-10-23] MEDS: BACITRACIN TOP OINT 15 GM TUBE TOP SCH ×2 (09:00→21:00)
[2016-10-23] MEDS: PANTOPRAZOLE SOD 40 MG DELAYED RELEASE TAB PO SCH (09:00)
[2016-10-23] MEDS: MIDAZOLAM 100 MG/ML INJ 100 ML IV SCH ×2 (09:28→18:10)
[2016-10-23] MEDS: DOCUSATE SODIUM 100 MG CAP PO SCH ×2 (09:29→21:10)
[2016-10-23] MEDS: LACTULOSE SYRUP 20 GM/30 ML CUP PO SCH (09:29)
[2016-10-23] MEDS: levETIRAcetam INJ 500 MG in SODIUM CHLORIDE 0.9% INJ 100 ML IV SCH ×2 (09:29→21:10)
[2016-10-23] MEDS: PANTOPRAZOLE SODIUM 40 MG VIAL IVP SCH (09:30)
[2016-10-23] MEDS: SODIUM CHLORIDE 0.9% FLUSH 5 ML FLUSH IVF SCH ×3 (09:30→21:00)
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
[2016-10-23] MEDS ORDERED: SODIUM ACETATE IV ONE (11:00)
[2016-10-23] MEDS ORDERED: SODIUM CHLOR 0.45% IV ONE (11:00)
[2016-10-23 11:37] LABS: POTASSIUM 3.4 MEQ/L (3.5-5.1)
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
[2016-10-23 12:45] LABS: POTASSIUM 3.4 MEQ/L (3.5-5.1)
[2016-10-23] MEDS ORDERED: MIDAZOLAM HCL 5 MG/ML VIAL (1 ML) ONE (14:06)
[2016-10-23] MEDS ORDERED: MIDAZOLAM HCL 5 MG/ML VIAL (1 ML) IVP ONE (14:15)
[2016-10-23 14:30] LABS: BLOOD GAS BASE EXCESS -7.8 mmol/L (-2-2); BLOOD GAS CARBOXYHEMOGLOBIN 1.5 % (0-4); BLOOD GAS HCO3 17 mmol/L (22-26); BLOOD GAS METHEMOGLOBIN 0.9 % (0-2); BLOOD GAS O2 HGB SATURATION 93 % (90-100); BLOOD GAS OXYGEN CONTENT 16.5 Vol % (12.0-20.0); BLOOD GAS PCO2 32 mmHg (38-42); BLOOD GAS PO2 79 mmHg (61-120); BLOOD GAS TOTAL HGB 12.6 G/DL (12.0-16.0); CRITICAL VALUE NO; OXYGEN DEVICE VENTILATOR; TEMP CORR TO 98.6
[2016-10-23 14:31] LABS: DRAW SITE ART LINE; FIO2 40 %
[2016-10-23 14:32] LABS: STAT YES
[2016-10-23] MEDS ORDERED: SODIUM BICARBONATE 8.4% INJ 50 MEQ/50 ML SYR ONE ×2 (14:36→18:36)
[2016-10-23] MEDS: POTASSIUM PHOSPHATE INJ 30 MMOL in SODIUM CHLOR 0.9% 250 ML INJ 250 ML IV PRN (15:47)
--- NOTE | 2016-10-23 18:00 | PD.PROCEDR ---
Procedure Note Procedure Procedure: Arterial Line Placement Right radial arterial line Diagnosis: Malignant cerebral edema Indications: Need for highly potent vasoactive substances and beat to beat hemodynamic monitoring Consent: Consent is deemed emergent or medically necessary Description of the Procedure: The right wrist was prepped and draped sterilely. 1% lidocaine was used for local anesthesia. The pulse was located and a needle was advanced into the artery. A 20 gauge, 12 cm catheter was advanced into the artery using a modified Seldinger technique. The catheter was sutured to the skin and a sterile dressing was applied. The catheter was connected to a pressure transducer and an arterial waveform was noted. There were no immediate complications noted. There was minimal EBL. I personally performed the procedure. Armani Crawford MD Oct 23, 2016 18:00
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
[2016-10-24] VITALS (17 sets, daily range): BP systolic 150–170; BP diastolic 68–76; PULSE 52–69; RESP 16–20; TEMP 95.4–100.6; O2SAT 92–97
[2016-10-24] MEDS: SODIUM CHLOR 0.45% IV SCH ×2 (00:41→13:30)
[2016-10-24] MEDS: SODIUM ACETATE IV SCH ×2 (00:41→13:30)
[2016-10-24] MEDS: NOREPINEPHRINE INJ 4 MG in SODIUM CHLOR 0.9% 250 ML INJ 246 ML IV SCH ×4 (00:42→21:17)
[2016-10-24] MEDS: MIDAZOLAM 100 MG/ML INJ 100 ML IV SCH ×3 (00:42→23:06)
[2016-10-24] MEDS: fentaNYL 2,500 MCG/NS 250 ML IV SCH ×3 (00:42→20:29)
[2016-10-24] MEDS: PROPOFOL 1000 MG/100 ML INJ 100 ML IV SCH ×9 (00:42→23:06)
[2016-10-24] MEDS: SODIUM CHLOR 0.9% 1000 ML INJ 1,000 ML IV SCH (02:00)
--- NOTE | 2016-10-24 03:21 | RADRPT ---
EXAM DATE/TIME: 10/24/2016 01:55 [facility] COMPARISON: CHEST SINGLE AP, October 23, 2016, 3:10. INDICATIONS : Short of breath. MEDICAL HISTORY : None. SURGICAL HISTORY : None. ENCOUNTER: Subsequent ACUITY: 4 - 6 days PAIN SCORE: Non-responsive. LOCATION: Bilateral chest FINDINGS: Bilateral effusions and consolidation greatest in the left lower lobe. Left subclavian line, endotrac heal tube, NG tube and left chest tube are again noted. I do not see a pneumothorax. Degenerative kenny nges of the spine. CONCLUSION: No significant change has occurred. Sterling Gordon MD on October 24, 2016 at 3:19 Board Certified Radiologist. This report was verified electronically.
[2016-10-24 03:26] LABS: BLOOD GAS BASE EXCESS -4.2 mmol/L (-2-2); BLOOD GAS CARBOXYHEMOGLOBIN 1.8 % (0-4); BLOOD GAS HCO3 20 mmol/L (22-26); BLOOD GAS METHEMOGLOBIN 0.7 % (0-2); BLOOD GAS O2 HGB SATURATION 91 % (90-100); BLOOD GAS OXYGEN CONTENT 11.4 Vol % (12.0-20.0); BLOOD GAS PCO2 32 mmHg (38-42); BLOOD GAS PO2 67 mmHg (61-120); BLOOD GAS TOTAL HGB 8.8 G/DL (12.0-16.0); TEMP CORR TO 98.6
[2016-10-24 03:27] LABS: CRITICAL VALUE NO; OXYGEN DEVICE VENTILATOR
[2016-10-24 03:28] LABS: DRAW SITE ART LINE; FIO2 40 %; STAT NO; VENT SETTINGS PRVC/AC
[2016-10-24] MEDS: INSULIN NovoLIN REGULAR SUPPLEMENTAL SCALE SQ SCH ×4 (06:00→18:00)
[2016-10-24] MEDS: ARTIFICIAL TEARS OPTH SOLN 15 ML BTL EACH EYE SCH ×4 (06:00→18:36)
[2016-10-24 06:02] LABS: AUTOMATED NEUTROPHIL # 9.5 TH/MM3 (1.8-7.7); BASOPHIL % 0.4 % (0.0-2.0); EOSINOPHIL # 0.4 TH/MM3 (0-0.4); EOSINOPHIL % 3.4 % (0.0-4.0); HEMATOCRIT 22.7 % (39.0-51.0); HEMO FLAGS DIFF FINAL; LYMPH % 6.2 % (9.0-44.0); LYMPHOCYTE # 0.7 TH/MM3 (1.0-4.8); MEAN CELL VOLUME 89.1 FL (80.0-100.0); MEAN CORPUSCULAR HEMOGLOBIN 31.6 PG (27.0-34.0); MEAN CORPUSCULAR HGB CONC 35.5 % (32.0-36.0); PLATELET COUNT 164 TH/MM3 (150-450); RED BLOOD COUNT 2.54 MIL/MM3 (4.50-5.90); RED CELL DISTRIBUTION WIDTH 14.3 % (11.6-17.2); WHITE BLOOD COUNT 11.3 TH/MM3 (4.0-11.0)
[2016-10-24 06:13] LABS: ALKALINE PHOSPHATASE 81 U/L (45-117); ALT (GPT) 11 U/L (12-78); ANION GAP 12 MEQ/L (5-15); AST (GOT) 13 U/L (15-37); BICARBONATE 20.6 MEQ/L (21.0-32.0); BLOOD UREA NITROGEN 14 MG/DL (7-18); CHLORIDE 128 MEQ/L (98-107); GLOMERULAR FILTRATION RATE 94 ML/MIN (>89); MAGNESIUM 1.9 MG/DL (1.5-2.5); POTASSIUM 3.2 MEQ/L (3.5-5.1); TOTAL BILIRUBIN ADULT 0.6 MG/DL (0.2-1.0)
[2016-10-24 06:22] LABS: SODIUM (NA) 161 MEQ/L (136-145)
[2016-10-24] MEDS: PANTOPRAZOLE SODIUM 40 MG VIAL IVP SCH (08:14)
[2016-10-24] MEDS: POTASSIUM PHOSPHATE INJ 30 MMOL in SODIUM CHLOR 0.9% 250 ML INJ 250 ML IV PRN (08:14)
[2016-10-24] MEDS: CHLORHEXIDINE 0.12% (ORAL KIT) 15 ML CUP MT SCH ×2 (08:15→20:00)
[2016-10-24] MEDS: levETIRAcetam INJ 500 MG in SODIUM CHLORIDE 0.9% INJ 100 ML IV SCH ×2 (08:15→20:27)
[2016-10-24] MEDS: SODIUM CHLORIDE 0.9% FLUSH 5 ML FLUSH IVF SCH ×3 (08:15→20:31)
[2016-10-24] MEDS: PANTOPRAZOLE SOD 40 MG DELAYED RELEASE TAB PO SCH (08:32)
[2016-10-24] MEDS: LACTULOSE SYRUP 20 GM/30 ML CUP PO SCH (08:34)
[2016-10-24] MEDS: DOCUSATE SODIUM 100 MG CAP PO SCH ×2 (08:34→20:32)
[2016-10-24] MEDS: BACITRACIN TOP OINT 15 GM TUBE TOP SCH ×2 (08:34→20:32)
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
--- NOTE | 2016-10-24 12:53 | RADRPT ---
EXAM DATE/TIME: 10/24/2016 12:12 [facility] COMPARISON: CHEST SINGLE AP, October 24, 2016, 1:55. INDICATIONS : Post chest tube removal. MEDICAL HISTORY : Hypercholesterolemia. Arthritis. Diabetic. SURGICAL HISTORY : Cardiac stent. ENCOUNTER: Subsequent ACUITY: 2 weeks PAIN SCORE: Non-responsive. LOCATION: chest FINDINGS: Endotracheal tube is stable and satisfactory position. Left subclavian central line is present good p osition. Nasogastric tube coils in the stomach. There has been interval removal of a left thoracostom y tube. No evidence of pneumothorax. Aeration continues to improve with slight interval decrease in b asilar infiltrates. Cardiac contours are grossly stable. CONCLUSION: Thoracostomy tube removal without evidence of pneumothorax Freddy Arana MD on October 24, 2016 at 12:50 Board Certified Radiologist. This report was verified electronically.
[2016-10-24 19:21] LABS: POTASSIUM 3.1 MEQ/L (3.5-5.1)
[2016-10-24] MEDS: POTASSIUM CHLOR 40 MEQ PREMIX 100 ML IV PRN ×2 (20:29→23:03)
[2016-10-24 23:26] LABS: BLOOD GAS BASE EXCESS -4.9 mmol/L (-2-2); BLOOD GAS CARBOXYHEMOGLOBIN 1.6 % (0-4); BLOOD GAS HCO3 19 mmol/L (22-26); BLOOD GAS METHEMOGLOBIN 0.9 % (0-2); BLOOD GAS O2 HGB SATURATION 93 % (90-100); BLOOD GAS OXYGEN CONTENT 16.2 Vol % (12.0-20.0); BLOOD GAS PO2 84 mmHg (61-120); BLOOD GAS TOTAL HGB 12.3 G/DL (12.0-16.0); TEMP CORR TO 98.6
[2016-10-24 23:27] LABS: BLOOD GAS PCO2 34 mmHg (38-42); CRITICAL VALUE NO; DRAW SITE ART LINE; FIO2 40 %; OXYGEN DEVICE VENTILATOR; STAT NO; VENT SETTINGS PRVC/AC
[2016-10-25] VITALS (18 sets, daily range): BP systolic 132–160; BP diastolic 65–74; PULSE 51–60; RESP 18; TEMP 95–98.1; O2SAT 92–95
[2016-10-25] MEDS: PROPOFOL 1000 MG/100 ML INJ 100 ML IV SCH ×7 (01:17→19:47)
[2016-10-25] MEDS: SODIUM CHLOR 0.45% IV SCH (04:07)
[2016-10-25] MEDS: SODIUM ACETATE IV SCH (04:07)
[2016-10-25] MEDS: fentaNYL 2,500 MCG/NS 250 ML IV SCH ×2 (05:50→14:55)
[2016-10-25] MEDS: MIDAZOLAM 100 MG/ML INJ 100 ML IV SCH ×2 (05:50→14:55)
[2016-10-25] MEDS: NOREPINEPHRINE INJ 4 MG in SODIUM CHLOR 0.9% 250 ML INJ 246 ML IV SCH ×2 (05:51→22:19)
[2016-10-25] MEDS: INSULIN NovoLIN REGULAR SUPPLEMENTAL SCALE SQ SCH ×4 (06:00→18:00)
[2016-10-25] MEDS: ARTIFICIAL TEARS OPTH SOLN 15 ML BTL EACH EYE SCH ×4 (06:00→18:00)
[2016-10-25 06:07] LABS: HEMATOCRIT 22.2 % (39.0-51.0); MEAN CORPUSCULAR HEMOGLOBIN 31.8 PG (27.0-34.0); MEAN CORPUSCULAR HGB CONC 35.8 % (32.0-36.0); PLATELET COUNT 139 TH/MM3 (150-450); RED BLOOD COUNT 2.49 MIL/MM3 (4.50-5.90); REVIEW FLAG FINAL; WHITE BLOOD COUNT 10.6 TH/MM3 (4.0-11.0)
[2016-10-25 06:32] LABS: BICARBONATE 22.2 MEQ/L (21.0-32.0); POTASSIUM 3.3 MEQ/L (3.5-5.1)
[2016-10-25] MEDS: CHLORHEXIDINE 0.12% (ORAL KIT) 15 ML CUP MT SCH ×2 (08:00→20:00)
[2016-10-25] MEDS: levETIRAcetam INJ 500 MG in SODIUM CHLORIDE 0.9% INJ 100 ML IV SCH ×2 (08:30→20:12)
[2016-10-25] MEDS: PANTOPRAZOLE SODIUM 40 MG VIAL IVP SCH (08:31)
[2016-10-25] MEDS: DOCUSATE SODIUM 100 MG CAP PO SCH ×2 (08:31→20:12)
[2016-10-25] MEDS: SODIUM CHLORIDE 0.9% FLUSH 5 ML FLUSH IVF SCH ×3 (08:31→20:12)
[2016-10-25] MEDS: PANTOPRAZOLE SOD 40 MG DELAYED RELEASE TAB PO SCH (09:00)
[2016-10-25] MEDS: LACTULOSE SYRUP 20 GM/30 ML CUP PO SCH ×2 (09:00→22:20)
[2016-10-25] MEDS: BACITRACIN TOP OINT 15 GM TUBE TOP SCH ×2 (09:00→20:12)
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
--- NOTE | 2016-10-25 09:50 | RADRPT ---
EXAM DATE/TIME: 10/25/2016 09:09 [facility] COMPARISON: CHEST SINGLE AP, October 24, 2016, 12:12. INDICATIONS : Short of breath. MEDICAL HISTORY : Unobtainable SURGICAL HISTORY : Unobtainable. ENCOUNTER: Subsequent ACUITY: 4 - 6 days PAIN SCORE: Non-responsive. LOCATION: Bilateral chest FINDINGS: There is slight interval worsening of the diffuse patchiness bilaterally consistent with worsening pu lmonary edema versus pneumonia. Clinical correlation is recommended. Small bilateral pleural effusi ons are noted. The endotracheal tube, nasogastric tube and left subclavian central line are stable. Degenerative changes are noted throughout the thoracic spine. CONCLUSION: 1. Interval slight worsening of the diffuse patchiness bilaterally consistent with worsening pulmona ry edema versus pneumonia. Clinical correlation is recommended. 2. Small bilateral pleural effusions. Art Abdalla MD on October 25, 2016 at 9:42 Board Certified Radiologist. This report was verified electronically.
--- NOTE | 2016-10-25 11:29 | HHI.PR ---
Neuropsych Emotional Emotional: UnabletoAssess: Emotional, Anxious/Fearful, Depressed/Sad, Hostile/ Resentful, Irritable/Angry/Frustrate, Labile, Constricted/Blunted Behavior Behavior: Unable to Asses: Behavior, Coping/Acceptance, Cooperative w/ Treatment, Motivation, Frustration Tolerance/[place], Impulsive/Agitated, Suicidal/ Homicidal Risk Cognitive Cognitive: Unable to Asses: Cognitive, Attention/Concentration, Confused/ Orientation, Insight/Awareness, Judgement/Problem-Solving, Memory Psychosocial Psychosocial: Intact: Psychosocial, Family/Other Adjustment, Realistic Expectation Progress Notes/Response to Tx Contents of Sessions: Level of Consciousness Time with Patient: 15 minutes Premorbid psychological status Premorbid Cognitive, Emotional and Behavioral Status: Unable to Assess. The patient's psychosocial history is unknown. Substance abuse history includes alcohol dependence/abuse. Behavioral Reactions of Patient and Family/Support System: Unable to Assess. The patients family was not present. Emotional/Behavioral Status of Patient and Family/Support System: Unable to Assess. Pertinent issues, if appropriate to this patients clinical care, are described in detail above. Maximizing acute care outcome It is recommended that the patient be monitored for emergent behavioral impulsivity as the medical condition evolves. This patients neuropathological challenges may limit their rehabilitation potential going forward, and these challenges will require specialized therapeutic skills to maximize outcome. Additionally, the patients family may be experiencing ongoing issues of adjustment given the traumatic nature of the injury, and they will be provided ongoing psychological assistance. Anticipated Problems Ongoing areas of concern will include behavioral impulsivity, lack of insight and judgment, which is expected to improve with time and treatment. Presently , the patient is not following commands. Treatment Plan This clinician will continue to follow with you throughout the course of this patients acute care treatment, and I will be available to meet with the patient s family/support system to facilitate their understanding and the ongoing care of their family member. The goals of neuropsychological intervention shall be both educational and supportive to the family/support system as is deemed clinically appropriate. [facility] Level: I:No response-total assistance Impression This 71 year old man suffered a significant traumatic brain injury and is presently sedated and intubated. Diagnosis: (1) Major neurocognitive disorder as late effect of traumatic brain injury with behavioral disturbance Status: Acute Progress Note Narrative Ongoing follow-up of patient seen during daily trauma rounds. This is day 6 post injury. The patient's ICPs were noted to be in the mid 20's overnight, now in the 19-21 range, and he is on max sedation. Palliative care will be consulted as it is the team consensus that this unfortunate gentleman's prognosis is quite poor, and it is unlikely that he will have a meaningful recovery (10% or less chance). He is at a [facility]. I will continue to follow. Luis Miguel Eugene PhD Oct 25, 2016 11:29 am
--- NOTE | 2016-10-25 12:48 | PD.CONS ---
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 dependent on 24- hour care. * SYMPTOMS: At this point, any pain, dyspnea, or agitation is being managed by deep sedation. * Palliative Care will continue to follow the patient during the upcoming days. . Time Spent Total Floor Time (mins): 79 Face to Face Time (mins): 55 >50% Counseling/Coord of Care: Yes (D/W Dr. Crawford and with Dr. Mabry, and w pt's RN.) Thank you for the opportunity to participate in the care of Mr. Cano. Attestation To help prompt me to consider important information that might be impacting today's encounter and assessment, information from prior notes written by myself or my colleagues may have been "brought forward" into today's note. My signature on this note, however, is an attestation that I personally performed the exam, history, and/or decision-making noted today, and, unless otherwise indicated, the interactions with patient, family, and staff as well as the review of records all occurred today. I also attest that the listed assessment and stated plan reflect my best clinical judgment today based on the combination of historical information, prior notes, and today's exam/ interactions. When time spent is documented, it refers only to time spent today by the signer, or if indicated, combined time spent today by collaborating physician/nurse practitioner. Desire Teran MD Oct 25, 2016 12:48
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
[2016-10-25] MEDS: POTASSIUM CHLOR 40 MEQ PREMIX 100 ML IV PRN (14:55)
[2016-10-25] MEDS ORDERED: NOREPINEPHRINE 4 MG/4 ML AMP ONE (19:16)
[2016-10-25] MEDS ORDERED: MAGNESIUM CITRATE SOLN 300 ML BTL PO ONE (19:45)
[2016-10-25 19:46] LABS: BLOOD GAS BASE EXCESS -2.3 mmol/L (-2-2); BLOOD GAS CARBOXYHEMOGLOBIN 1.9 % (0-4); BLOOD GAS HCO3 22 mmol/L (22-26); BLOOD GAS METHEMOGLOBIN 1.3 % (0-2); BLOOD GAS O2 HGB SATURATION 90 % (90-100); BLOOD GAS OXYGEN CONTENT 10.7 Vol % (12.0-20.0); BLOOD GAS PCO2 37 mmHg (38-42); BLOOD GAS PO2 70 mmHg (61-120); BLOOD GAS TOTAL HGB 8.3 G/DL (12.0-16.0); TEMP CORR TO 98.6
[2016-10-25 19:47] LABS: CRITICAL VALUE NO; DRAW SITE ART LINE; FIO2 50 %; OXYGEN DEVICE VENTILATOR; STAT NO
[2016-10-25] MEDS: POLYETHYLENE GLYCOL 17 GM PKG PO SCH (22:20)
[2016-10-25] MEDS: DEXAMETHASONE SOD PHOS 20 MG/5 ML VIAL IV PUSH SCH (22:22)
[2016-10-25 22:31] LABS: BLOOD GAS BASE EXCESS -2.4 mmol/L (-2-2); BLOOD GAS CARBOXYHEMOGLOBIN 1.9 % (0-4); BLOOD GAS HCO3 21 mmol/L (22-26); BLOOD GAS METHEMOGLOBIN 1.2 % (0-2); BLOOD GAS O2 HGB SATURATION 89 % (90-100); BLOOD GAS OXYGEN CONTENT 12.5 Vol % (12.0-20.0); BLOOD GAS PCO2 34 mmHg (38-42); BLOOD GAS PO2 64 mmHg (61-120); BLOOD GAS TOTAL HGB 9.9 G/DL (12.0-16.0); CRITICAL VALUE YES; OXYGEN DEVICE VENTILATOR; TEMP CORR TO 98.6
[2016-10-25 22:32] LABS: DRAW SITE ART LINE; FIO2 50 %; STAT NO; VENT SETTINGS PRVC/AC
[2016-10-26] VITALS (19 sets, daily range): BP systolic 148–173; BP diastolic 58–92; PULSE 60–64; RESP 22; TEMP 97.3–98.4; O2SAT 91–94
[2016-10-26] MEDS: MIDAZOLAM 100 MG/ML INJ 100 ML IV SCH ×3 (00:11→19:57)
[2016-10-26] MEDS: fentaNYL 2,500 MCG/NS 250 ML IV SCH ×3 (00:11→19:57)
[2016-10-26] MEDS: PROPOFOL 1000 MG/100 ML INJ 100 ML IV SCH ×8 (00:12→22:02)
[2016-10-26] MEDS: DEXAMETHASONE SOD PHOS 20 MG/5 ML VIAL IV PUSH SCH ×4 (03:11→19:57)
[2016-10-26 05:45] LABS: HEMATOCRIT 23.8 % (39.0-51.0); MEAN CELL VOLUME 89.4 FL (80.0-100.0); MEAN CORPUSCULAR HGB CONC 35.8 % (32.0-36.0); PLATELET COUNT 169 TH/MM3 (150-450); RED BLOOD COUNT 2.66 MIL/MM3 (4.50-5.90); REVIEW FLAG FINAL; WHITE BLOOD COUNT 12.1 TH/MM3 (4.0-11.0)
--- NOTE | 2016-10-26 05:48 | RADRPT ---
EXAM DATE/TIME: 10/26/2016 05:00 [facility] COMPARISON: CHEST SINGLE AP, October 25, 2016, 9:09. INDICATIONS : Shortness of breath, possible pulmonary disease. MEDICAL HISTORY : None. SURGICAL HISTORY : None. ENCOUNTER: Subsequent ACUITY: 1 week PAIN SCORE: Non-responsive. LOCATION: Bilateral chest FINDINGS: A single portable frontal view of the chest shows no significant change in the bilateral pulmonary in filtrates. Heart is normal in size. Nasogastric tube coiled in the stomach. A linear density overlies the trachea which could relate to an endotracheal tube. Tip is approximately 3 cm cephalad to the ca maikel. Left subclavian central line noted. CONCLUSION: Unchanged bilateral pulmonary infiltrates. Hamlet Milligan Jr., MD on October 26, 2016 at 5:46 Board Certified Radiologist. This report was verified electronically.
[2016-10-26] MEDS: LACTULOSE SYRUP 20 GM/30 ML CUP PO SCH ×3 (06:00→19:58)
[2016-10-26] MEDS: ARTIFICIAL TEARS OPTH SOLN 15 ML BTL EACH EYE SCH ×4 (06:00→18:00)
[2016-10-26] MEDS: INSULIN NovoLIN REGULAR SUPPLEMENTAL SCALE SQ SCH ×4 (06:00→16:42)
[2016-10-26 06:15] LABS: BICARBONATE 22.4 MEQ/L (21.0-32.0); POTASSIUM 4.5 MEQ/L (3.5-5.1)
[2016-10-26] MEDS: SODIUM ACETATE IV SCH ×2 (06:40→19:01)
[2016-10-26] MEDS: SODIUM CHLOR 0.45% IV SCH ×2 (06:40→19:01)
[2016-10-26] MEDS: levETIRAcetam INJ 500 MG in SODIUM CHLORIDE 0.9% INJ 100 ML IV SCH ×2 (07:52→19:57)
[2016-10-26] MEDS: PANTOPRAZOLE SODIUM 40 MG VIAL IVP SCH (07:52)
[2016-10-26] MEDS: NOREPINEPHRINE INJ 4 MG in SODIUM CHLOR 0.9% 250 ML INJ 246 ML IV SCH ×2 (07:53→19:00)
[2016-10-26] MEDS: CHLORHEXIDINE 0.12% (ORAL KIT) 15 ML CUP MT SCH ×2 (08:00→19:58)
[2016-10-26] MEDS: SODIUM CHLORIDE 0.9% FLUSH 5 ML FLUSH IVF SCH ×3 (09:00→19:58)
[2016-10-26] MEDS: BACITRACIN TOP OINT 15 GM TUBE TOP SCH ×2 (09:00→19:58)
[2016-10-26] MEDS: POLYETHYLENE GLYCOL 17 GM PKG PO SCH ×2 (09:00→19:57)
[2016-10-26] MEDS: PANTOPRAZOLE SOD 40 MG DELAYED RELEASE TAB PO SCH (09:00)
[2016-10-26] MEDS: DOCUSATE SODIUM 100 MG CAP PO SCH ×2 (09:00→19:57)
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
[2016-10-27] VITALS (14 sets, daily range): BP systolic 162–175; BP diastolic 79–83; PULSE 60–70; RESP 22; TEMP 97.9–98.9; O2SAT 92–93
[2016-10-27] MEDS: PROPOFOL 1000 MG/100 ML INJ 100 ML IV SCH ×6 (00:14→13:59)
[2016-10-27] MEDS: DEXAMETHASONE SOD PHOS 20 MG/5 ML VIAL IV PUSH SCH ×3 (03:00→14:00)
[2016-10-27] MEDS: INSULIN NovoLIN REGULAR SUPPLEMENTAL SCALE SQ SCH ×3 (06:00→11:31)
[2016-10-27] MEDS: LACTULOSE SYRUP 20 GM/30 ML CUP PO SCH ×2 (06:00→14:00)
[2016-10-27] MEDS: ARTIFICIAL TEARS OPTH SOLN 15 ML BTL EACH EYE SCH ×3 (06:00→11:31)
[2016-10-27 06:07] LABS: HEMATOCRIT 23.5 % (39.0-51.0); MEAN CELL VOLUME 88.8 FL (80.0-100.0); MEAN CORPUSCULAR HEMOGLOBIN 31.3 PG (27.0-34.0); MEAN CORPUSCULAR HGB CONC 35.3 % (32.0-36.0); PLATELET COUNT 243 TH/MM3 (150-450); RED BLOOD COUNT 2.65 MIL/MM3 (4.50-5.90); RED CELL DISTRIBUTION WIDTH 14.2 % (11.6-17.2); REVIEW FLAG FINAL; WHITE BLOOD COUNT 13.9 TH/MM3 (4.0-11.0)
[2016-10-27 06:08] LABS: BICARBONATE 24.4 MEQ/L (21.0-32.0); POTASSIUM 4.6 MEQ/L (3.5-5.1)
[2016-10-27] MEDS: fentaNYL 2,500 MCG/NS 250 ML IV SCH ×2 (06:57→14:12)
[2016-10-27] MEDS: MIDAZOLAM 100 MG/ML INJ 100 ML IV SCH ×2 (06:57→14:12)
[2016-10-27] MEDS: CHLORHEXIDINE 0.12% (ORAL KIT) 15 ML CUP MT SCH (08:00)
[2016-10-27] MEDS: NOREPINEPHRINE INJ 4 MG in SODIUM CHLOR 0.9% 250 ML INJ 246 ML IV SCH (08:03)
[2016-10-27] MEDS: PANTOPRAZOLE SODIUM 40 MG VIAL IVP SCH (08:39)
[2016-10-27] MEDS: levETIRAcetam INJ 500 MG in SODIUM CHLORIDE 0.9% INJ 100 ML IV SCH (08:39)
[2016-10-27] MEDS: BACITRACIN TOP OINT 15 GM TUBE TOP SCH (08:40)
[2016-10-27] MEDS: DOCUSATE SODIUM 100 MG CAP PO SCH (08:40)
[2016-10-27] MEDS: SODIUM CHLORIDE 0.9% FLUSH 5 ML FLUSH IVF SCH ×2 (08:40)
[2016-10-27] MEDS: POLYETHYLENE GLYCOL 17 GM PKG PO SCH (08:40)
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
[2016-10-27] MEDS: SODIUM CHLOR 0.45% IV SCH (09:45)
[2016-10-27] MEDS: SODIUM ACETATE IV SCH (09:45)
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
[2016-10-27] MEDS ORDERED: fentaNYL DRIP 250 ML IV SCH (14:45)
[2016-10-27] MEDS ORDERED: MIDAZOLAM HCL 5 MG/ML VIAL (1 ML) IV PUSH PRN (14:45)
[2016-10-27] MEDS ORDERED: MIDAZOLAM 100 MG/ML INJ 100 ML IV SCH (14:45)
[2016-10-27] MEDS ORDERED: ACETAMINOPHEN 650 MG SUPP PR PRN (15:45)
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
== END 2016-10-27 21:53 | disposition expired | DRG 955 ==
LOC: NEPI 16:04 → NEDA 16:47 → EDBD 16:47 → N03B 17:10 → N03A 10-20 09:52
PROVIDERS: ADMIT Surgery Trauma Surgery; ATTEND Surgery Trauma Surgery
PROC: 00H032Z Insertion of Monitoring Device into Brain, Percutaneous Approach (ICD-10-PCS; principal; 2016-10-19)
PROC: 5A1955Z Respiratory Ventilation, Greater than 96 Consecutive Hours (ICD-10-PCS; 2016-10-19)
PROC: 00C30ZZ Extirpation of Matter from Intracranial Epidural Space, Open Approach (ICD-10-PCS; 2016-10-20)
PROC: 03HY32Z Insertion of Monitoring Device into Upper Artery, Percutaneous Approach (ICD-10-PCS; 2016-10-23)
DX: S27.2XXA Traumatic hemopneumothorax, initial encounter; G93.6 Cerebral edema; J96.01 Acute respiratory failure with hypoxia; S22.041A Stable burst fracture of fourth thoracic vertebra, initial encounter for closed fracture; Z51.5 Encounter for palliative care; J18.9 Pneumonia, unspecified organism; Z99.11 Dependence on respirator [ventilator] status; S22.051A Stable burst fracture of T5-T6 vertebra, initial encounter for closed fracture; E44.0 Moderate protein-calorie malnutrition; S22.42XA Multiple fractures of ribs, left side, initial encounter for closed fracture; E87.2 Acidosis; Z68.41 Body mass index [BMI] 40.0-44.9, adult; S02.40DA Maxillary fracture, left side, initial encounter for closed fracture; S02.19XA Other fracture of base of skull, initial encounter for closed fracture; S02.40FA Zygomatic fracture, left side, initial encounter for closed fracture; S50.312A Abrasion of left elbow, initial encounter; S00.31XA Abrasion of nose, initial encounter; R40.2431 Glasgow coma scale score 3-8, in the field [EMT or ambulance]; H05.89 Other disorders of orbit; D32.0 Benign neoplasm of cerebral meninges; K76.0 Fatty (change of) liver, not elsewhere classified; M50.30 Other cervical disc degeneration, unspecified cervical region; S02.82XA Fracture of other specified skull and facial bones, left side, initial encounter for closed fracture; E87.6 Hypokalemia; H11.33 Conjunctival hemorrhage, bilateral; I25.10 Atherosclerotic heart disease of native coronary artery without angina pectoris; E86.1 Hypovolemia; E87.8 Other disorders of electrolyte and fluid balance, not elsewhere classified; R73.9 Hyperglycemia, unspecified; I10 Essential (primary) hypertension; V29.9XXA Motorcycle rider (driver) (passenger) injured in unspecified traffic accident, initial encounter; Z66 Do not resuscitate; Z95.5 Presence of coronary angioplasty implant and graft; Z87.891 Personal history of nicotine dependence; Z98.1 Arthrodesis status
CPT/HCPCS: 31500; 36556; 36600; 36620; 61210; 70450; 70486; 71010; 71260; 72125; 72128; 72131; 72170; 74177; 80048; 80053; 80307; 82435; 82550; 82552; 82565; 82805; 82947; 82948; 83605; 83735; 83930; 84100; 84132; 84295; 84520; 85025; 85027; 85384; 85610; 85730; 86850; 86900; 86901; 87641; 88304; 90471; 90715; 93005; 94002; 94003; 94770; 95819; 96361; 96374; 96375; 99291; A0431-QM-SH; A0436-QM-SH; C1713; C9113; G0390; J0171; J0330; J0461; J0690; J1100; J1580; J1815; J1953; J2150; J2250; J2370; J2515; J3010; J3370; J3480; J7030; J7040; J7050; J7060; L0150; L0172; Q9967